=== PATIENT | female | born 1970 ===

== ENCOUNTER 2017-11-01 08:24 | Outpatient (CLI) | payer OTHER ==
[~2017-11-01] VITALS: Ht 160 cm; Wt 63.5 kg
[2017-11-01] MEDS ORDERED: ZYRTEC10 MG PO (11:40)
[2017-11-01] MEDS ORDERED: FLONASE16 GM NASAL (11:40)
[2017-11-01] MEDS ORDERED: ZITHROMAX500 MG PO (11:40)
[2017-11-01] MEDS ORDERED: ZANTAC300 MG PO (11:40)
== END 2017-11-01 08:45 | disposition home or self-care (01) ==
LOC: OFIC 805 08:24
DX: J01.80 Other acute sinusitis (principal); J32.8 Other chronic sinusitis; J37.0 Chronic laryngitis; J34.2 Deviated nasal septum; R49.0 Dysphonia; K21.9 Gastro-esophageal reflux disease without esophagitis